=== PATIENT | female | born 1990 | race Caucasian/White ===

== ENCOUNTER → 2019-10-31 08:37 | Outpatient (REF) | payer BC, SELFPAY | LOC: ANHLAB 08:37 | PROVIDERS: PCP Internal Medicine; Visit Provider Nurse Practitioner | DX: D03.62 Melanoma in situ of left upper limb, including shoulder (principal) | CPT/HCPCS: 88305; 88342 ==

== ENCOUNTER → 2019-11-07 08:48 | Outpatient (REF) | payer BC, SELFPAY | LOC: ANHLAB 08:48 | PROVIDERS: PCP Internal Medicine; Visit Provider Nurse Practitioner | DX: D03.62 Melanoma in situ of left upper limb, including shoulder (principal) | CPT/HCPCS: 88305; 88342 ==

== ENCOUNTER → 2020-02-06 08:52 | Outpatient (REF) | payer BC, SELFPAY | LOC: ANHLAB 08:52 | PROVIDERS: PCP Internal Medicine; Visit Provider Nurse Practitioner | DX: D22.5 Melanocytic nevi of trunk (principal); D22.61 Melanocytic nevi of right upper limb, including shoulder | CPT/HCPCS: 88305 ==

== ENCOUNTER → 2021-03-04 16:24 | Outpatient (REF) | payer OTHER, SELFPAY | LOC: ANHLAB 16:24 | PROVIDERS: PCP Internal Medicine; Visit Provider Nurse Practitioner | DX: D49.2 Neoplasm of unspecified behavior of bone, soft tissue, and skin (principal) | CPT/HCPCS: 88305; 88342 ==

== ENCOUNTER → 2021-04-29 15:14 | Outpatient (REF) | payer OTHER, SELFPAY | LOC: ANHLAB 15:14 | PROVIDERS: PCP Internal Medicine; Visit Provider Nurse Practitioner | DX: D49.2 Neoplasm of unspecified behavior of bone, soft tissue, and skin (principal) | CPT/HCPCS: 88305; 88342 ==

== ENCOUNTER 2022-03-05 09:34 | Outpatient (CLI) | payer OTHER, SELFPAY ==
[2022-03-05 09:54] LABS: Basophils Percent Auto 0.5 % (0.2-1.2); Eosinophils Absolute Auto 0.1 K/mm3 (0-0.3); Eosinophils Percent Auto 0.7 % (0-4.4); Hematocrit 45.7 % (37.0-47.0); Hemoglobin 14.9 g/dL (12.0-15.0); Immature Granulocyte Absolute 0.01 K/mm3 (0.00-0.031); Immature Granulocyte Percent A 0.1 % (0-0.5); Lymphocytes Absolute Auto 1.82 K/mm3 (0.9-3.2); Lymphocytes Percent Auto 24.7 % (18.3-44.2); Mean Corpuscular HGB Conc 32.6 g/dl (32-36); Mean Corpuscular Volume 85.7 fl (80-100); Monocytes Absolute Auto 0.5 K/mm3 (0.1-0.6); Monocytes Percent Auto 7.3 % (2.6-8.5); Neutrophils Absolute Auto 4.9 K/mm3 (1.3-6.7); Neutrophils Percent Auto 66.7 % (45.5-73.1); Platelet Count Result 212 k/mm3 (150-375); Red Blood Count 5.33 M/mm3 (4.2-5.4); Red Cell Distribution Width 12.1 % (11.5-14.5); White Blood Count 7.4 K/mm3 (4.5-10.0)
[2022-03-05 09:58] LABS: Blood Urea Nitrogen 8 mg/dL (8-26); Carbon Dioxide 28 mmol/L (22-30); Chloride 104 mmol/L (98-109); Estimated Glomerular Filt Rate > 60; Glucose 89 mg/dL (70-105); Ionized Calcium (POC) 1.25 mmol/L (1.11-1.31); Potassium 4.2 mmol/L (3.5-4.9); Sodium 141 mmol/L (138-146)
[2022-03-05 15:32] LABS: Alanine Aminotransferase 13 U/L (6-35); Albumin Level 4.7 g/dL (3.5-5.1); Alkaline Phosphatase 73 U/L (38-126); Anion Gap 7 mmol/L (8-16); Aspartate Amino Transferase 20 U/L (14-36); Bilirubin,Total 0.3 mg/dL (0.2-1.3); Blood Urea Nitrogen 10 mg/dL (7-17); Carbon Dioxide 26 mmol/L (22-30); Chloride 106 mmol/L (98-107); Estimated Glomerular Filt Rate > 60; Glucose 87 mg/dL (65-110); Potassium 4.3 mmol/L (3.4-5.0); Sodium 139 mmol/L (137-145)
== END 2022-03-05 09:35 | disposition home or self-care (01) ==
PROVIDERS: PCP Internal Medicine; Visit Provider Internal Medicine Hematology & Oncology
DX: C43.59 Malignant melanoma of other part of trunk (principal)
CPT/HCPCS: 36415; 80047; 80053; 85025

== ENCOUNTER 2022-12-02 08:55 | Outpatient (CLI) | payer OTHER, SELFPAY ==
[2022-12-02 09:20] LABS: Basophils Absolute Auto 0.1 K/mm3 (0.0-0.1); Basophils Percent Auto 0.7 % (0.2-1.2); Eosinophils Absolute Auto 0.1 K/mm3 (0-0.3); Eosinophils Percent Auto 1.2 % (0-4.4); Hematocrit 43.5 % (37.0-47.0); Hemoglobin 13.8 g/dL (12.0-15.0); Immature Granulocyte Absolute 0.04 K/mm3 (0.00-0.031); Immature Granulocyte Percent A 0.4 % (0-0.5); Lymphocytes Absolute Auto 1.97 K/mm3 (0.9-3.2); Lymphocytes Percent Auto 20.8 % (18.3-44.2); Mean Corpuscular HGB Conc 31.7 g/dl (32-36); Mean Corpuscular Hemoglobin 27.4 pg (26-34); Mean Corpuscular Volume 86.5 fl (80-100); Mean Platelet Volume 10.1 fl (7.4-10.4); Monocytes Absolute Auto 0.5 K/mm3 (0.1-0.6); Monocytes Percent Auto 4.9 % (2.6-8.5); Neutrophils Absolute Auto 6.8 K/mm3 (1.3-6.7); Platelet Count Result 178 k/mm3 (150-375); Red Blood Count 5.03 M/mm3 (4.2-5.4); Red Cell Distribution Width 13.2 % (11.5-14.5); White Blood Count 9.5 K/mm3 (4.5-10.0)
[2022-12-02 10:42] LABS: Alanine Aminotransferase 26 U/L (6-35); Albumin Level 3.9 g/dL (3.5-5.1); Alkaline Phosphatase 122 U/L (38-126); Anion Gap 7 mmol/L (8-16); Aspartate Amino Transferase 36 U/L (14-36); Bilirubin,Total 0.6 mg/dL (0.2-1.3); Blood Urea Nitrogen 16 mg/dL (7-17); Calcium 8.8 mg/dL (8.4-10.2); Carbon Dioxide 27 mmol/L (22-30); Chloride 105 mmol/L (98-107); Estimated Glomerular Filt Rate > 60; Glucose 61 mg/dL (65-110); Lactate Dehydrogenase 203 U/L (120-246); Potassium 3.9 mmol/L (3.4-5.0); Sodium 139 mmol/L (137-145)
== END 2022-12-02 08:56 | disposition home or self-care (01) ==
LOC: ANHLAB 09:00
PROVIDERS: PCP Internal Medicine; Visit Provider Internal Medicine Hematology & Oncology
DX: C43.59 Malignant melanoma of other part of trunk (principal)
CPT/HCPCS: 36415; 80053; 83615; 85025

== ENCOUNTER 2023-02-14 15:45 | Emergency (ER) | payer OTHER, SELFPAY ==
--- NOTE | ~2023-02-14 | XR_ITS ---
Right wrist Technique: PA, oblique, lateral, and ulnar deviation views were obtained. Clinical History: Pain Findings: No acute fracture or dislocation is seen. Osseous alignment is anatomic. Joint spaces are p reserved. Soft tissues are unremarkable. Impression: Unremarkable right wrist radiographs. Reviewed, dictated and finalized at location . Impression: Unremarkable right wrist radiographs.
--- NOTE | 2023-02-14 16:18 | ED.UPPEXIN ---
HPI - Extremity Injury (Upper) General Chief Complaint: Extremity Injury, Upper Stated Complaint: rt wrist injury Time Seen by Provider: 02/14/23 16:18 Source: patient Mode of arrival: ambulatory Limitations: no limitations History of Present Illness HPI narrative: Patient is a 32-year-old female that presents with right wrist injury after falling on and gaping blocks while walking through her yard on wednesday. Patient reports tenderness but has never had swelling or bruising. Patient has been taking Tylenol and ibuprofen with moderate relief. Patient is still able to move fingers normally and denies any numbness tingling or weakness. Related Data Allergies Allergy/AdvReac Type Severity Reaction Status Date / Time No Known Allergies Allergy Verified 05/11/22 14:08 Review of Systems Review of Systems: All systems reviewed & are unremarkable except as noted in HPI and below Constitutional: Constitutional: Denies body ache(s), Denies fever(s), Denies headache(s), Denies malaise and Denies weakness Eyes: Eyes: Denies loss of vision ENT: Denies otalgia, Denies headache(s), Denies nasal discharge, Denies sinus pain and Denies sore throat Cardiovascular: Cardiovascular: Denies chest pain, Denies irregular heart rhythm and Denies dyspnea Respiratory: Respiratory: Denies dyspnea Gastrointestinal: Gastrointestinal: Denies abdominal pain, Denies melena, Denies hematochezia, Denies diarrhea, Denies nausea and Denies vomiting Musculoskeletal: Musculoskeletal: Denies back pain, Denies myalgias, Reports arthralgias and Reports joint swelling Integumentary/Breasts: Skin/Breast: Denies pruritus and Denies rash Neurologic: Denies headache(s), Denies loss of vision and Denies weakness Psychiatric: Psychiatric: Reports no additional psychiatric complaints [facility] Past Medical History Medical History (Updated 02/14/23 @ 16:57 by Paige Aragon, MAMADOU) Hx of melanoma of skin left mid back Family History Family History Grandparent Diabetes mellitus Other Cerebrovascular accident Family history of cardiovascular disease Family history of gout Family history of malignant neoplasm of male breast Hypertension Social History Social History (Updated 05/11/22 @ 14:09 by Cuca Norris MA) Smoking status: Never smoker Alcohol intake: never Substance use: never Living arrangements: with family Occupation/Education: occupation Gender identity (if verbalized by the patient): Female Comments At time of signature, agree with nursing past medical, surgical, social and family history. There is no relevant family history pertinent to the presenting complaint. Exam Const: General: cooperative, healthy appearing, comfortable, no acute distress and well nourished Nutritional Appearance: well nourished Orientation/consciousness: patient oriented x3 Limitations: no limitations HENMT: Head: normal to inspection, normocephalic and atraumatic Ears: external ears normal Face/Nose/Sinus: Normal external nose present, normal facial exam and face symmetric Face and sinus: normal facial exam and face symmetric Mouth: Yes lip normal Eyes: General: appearance normal, both eyes and all related structures Alignment and Position: alignment normal and position normal Eyelids: eyelids normal Pupils: Equal, round and reactive pupils present EOM: EOMs intact bilaterally Neck: Neck: normal visual inspection and full ROM Chest: Chest palpation & inspection: normal inspection of the chest Resp: Effort & Inspection: normal respiratory effort and able to speak in complete sentences Auscultation: clear to auscultation bilaterally Cardio: Rate: regular rate Rhythm: regular rhythm Heart sounds: S1 normal heart sound present and S2 normal heart sound present GI: Inspection: normal to inspection Skin: General skin exam: normal color and no rashes or lesions noted Neuro:
[2023-02-14 16:35] VITALS: BP 108/84; PULSE 84; RESP 18; TEMP 36.5; O2SAT 99
== END 2023-02-14 17:03 | disposition home or self-care (01) ==
PROVIDERS: Emergency Provider Nurse Practitioner Family; PCP Physician Assistant Medical
DX: S63.501A Unspecified sprain of right wrist, initial encounter (principal); S66.911A Strain of unspecified muscle, fascia and tendon at wrist and hand level, right hand, initial encounter; W19.XXXA Unspecified fall, initial encounter; Z85.820 Personal history of malignant melanoma of skin
CPT/HCPCS: 73110; 99213; G0463

== ENCOUNTER 2023-10-07 08:42 | Outpatient (CLI) | payer OTHER, SELFPAY ==
[2023-10-07 09:01] LABS: Basophils Percent Auto 0.4 % (0.2-1.2); Eosinophils Absolute Auto 0.1 K/mm3 (0-0.3); Hematocrit 41.6 % (37.0-47.0); Hemoglobin 13.6 g/dL (12.0-15.0); Immature Granulocyte Absolute 0.02 K/mm3 (0.00-0.031); Immature Granulocyte Percent A 0.3 % (0-0.5); Lymphocytes Percent Auto 21.3 % (18.3-44.2); Mean Corpuscular HGB Conc 32.7 g/dl (32-36); Mean Corpuscular Hemoglobin 28.1 pg (26-34); Mean Platelet Volume 10.3 fl (7.4-10.4); Monocytes Absolute Auto 0.5 K/mm3 (0.1-0.6); Monocytes Percent Auto 5.9 % (2.6-8.5); Neutrophils Absolute Auto 5.7 K/mm3 (1.3-6.7); Neutrophils Percent Auto 71.1 % (45.5-73.1); Platelet Count Result 174 k/mm3 (150-375); Red Blood Count 4.84 M/mm3 (4.2-5.4); Red Cell Distribution Width 12.8 % (11.5-14.5)
[2023-10-07 09:07] LABS: Blood Urea Nitrogen 9 mg/dL (8-26); Carbon Dioxide 30 mmol/L (22-30); Chloride 101 mmol/L (98-109); Estimated Glomerular Filt Rate > 60; Glucose 86 mg/dL (70-105); Ionized Calcium (POC) 1.17 mmol/L (1.11-1.31); Potassium 4.3 mmol/L (3.5-4.9); Sodium 142 mmol/L (138-146)
[2023-10-07 10:35] LABS: Alanine Aminotransferase 12 U/L (6-35); Alkaline Phosphatase 92 U/L (38-126); Anion Gap 7 mmol/L (8-16); Aspartate Amino Transferase 21 U/L (14-36); Bilirubin,Total 0.5 mg/dL (0.2-1.3); Blood Urea Nitrogen 10 mg/dL (7-17); Calcium 9.1 mg/dL (8.4-10.2); Carbon Dioxide 28 mmol/L (22-30); Chloride 103 mmol/L (98-107); Estimated Glomerular Filt Rate > 60; Glucose 89 mg/dL (65-110); Lactate Dehydrogenase 140 U/L (120-246); Potassium 4.3 mmol/L (3.4-5.0); Sodium 138 mmol/L (137-145)
== END 2023-10-07 08:43 | disposition home or self-care (01) ==
LOC: ANHLAB 08:44
PROVIDERS: PCP Physician Assistant Medical; Visit Provider Internal Medicine Hematology & Oncology
DX: C43.59 Malignant melanoma of other part of trunk (principal)
CPT/HCPCS: 36415; 80047; 80053; 83615; 85025

== ENCOUNTER 2024-07-10 08:18 | Outpatient (CLI) | payer OTHER, SELFPAY ==
[2024-07-10 08:32] LABS: Basophils Absolute Auto 0.1 K/mm3 (0.0-0.1); Basophils Percent Auto 0.7 % (0.2-1.2); Eosinophils Absolute Auto 0.2 K/mm3 (0-0.3); Eosinophils Percent Auto 2.1 % (0-4.4); Hemoglobin 13.6 g/dL (12.0-15.0); Immature Granulocyte Absolute 0.03 K/mm3 (0.00-0.031); Immature Granulocyte Percent A 0.4 % (0-0.5); Lymphocytes Absolute Auto 1.61 K/mm3 (0.9-3.2); Lymphocytes Percent Auto 22.7 % (18.3-44.2); Mean Corpuscular HGB Conc 33.2 g/dl (32-36); Mean Corpuscular Hemoglobin 28.2 pg (26-34); Mean Corpuscular Volume 85.1 fl (80-100); Mean Platelet Volume 9.7 fl (7.4-10.4); Monocytes Absolute Auto 0.4 K/mm3 (0.1-0.6); Monocytes Percent Auto 6.2 % (2.6-8.5); Neutrophils Absolute Auto 4.8 K/mm3 (1.3-6.7); Neutrophils Percent Auto 67.9 % (45.5-73.1); Platelet Count Result 196 k/mm3 (150-375); Red Blood Count 4.82 M/mm3 (4.2-5.4); Red Cell Distribution Width 11.8 % (11.5-14.5); White Blood Count 7.1 K/mm3 (4.5-10.0)
[2024-07-10 10:54] LABS: Alanine Aminotransferase 12 U/L (6-35); Albumin Level 4.2 g/dL (3.5-5.1); Alkaline Phosphatase 71 U/L (38-126); Anion Gap 7 mmol/L (4-12); Aspartate Amino Transferase 24 U/L (14-36); Bilirubin,Total 0.5 mg/dL (0.2-1.3); Blood Urea Nitrogen 14 mg/dL (7-17); Calcium 8.7 mg/dL (8.4-10.2); Carbon Dioxide 27 mmol/L (22-30); Chloride 104 mmol/L (98-107); Estimated Glomerular Filt Rate > 60; Glucose 88 mg/dL (65-110); Potassium 4.2 mmol/L (3.4-5.0); Sodium 138 mmol/L (137-145)
[2024-07-10 15:05] LABS: Lactate Dehydrogenase 154 U/L (120-246)
== END 2024-07-10 08:19 | disposition home or self-care (01) ==
LOC: ANHLAB 08:19
PROVIDERS: PCP Physician Assistant Medical; Visit Provider Internal Medicine Hematology & Oncology
DX: C43.59 Malignant melanoma of other part of trunk (principal)
CPT/HCPCS: 36415; 80053; 83615; 85025